=== PATIENT | female | born 1965 | race Caucasian/White ===

== ENCOUNTER 2017-02-05 10:54 | Emergency (ER) | payer OTHER ==
[~2017-02-05] VITALS: Ht 175.3 cm; Wt 86.0 kg
[2017-02-05 11:17] VITALS: Ht 175.3 cm; Wt 86.0 kg
[2017-02-05] MEDS ORDERED: ASPIRIN 325 MG TAB PO STA (11:21)
[2017-02-05 11:39] LABS: ADD SCAN DIFF NO
[2017-02-05 11:47] LABS: BASOPHILS % 0.5 % (0.0-2.0); EOSINOPHILS % 0.2 % (0.0-7.0); HEMATOCRIT 34.9 % (37.0-47.0); LYMPHOCYTES # 1.7 10^3/ul (0.8-2.9); LYMPHOCYTES % 19.8 % (15.0-51.0); MEAN CORPUSCULAR HEMOGLOBIN 29.5 pg (29.0-33.0); MEAN CORPUSCULAR HGB CONC 34.4 g/dl (32.0-37.0); MEAN CORPUSCULAR VOLUME 85.7 fl (82.0-101.0); MEAN PLATELET VOLUME 11.5 fl (7.4-10.4); MONOCYTE # 0.5 10^3/ul (0.3-0.9); NEUTROPHIL # 6.3 10^3/ul (1.6-7.5); NEUTROPHILS % 73.1 % (39.0-77.0); PLATELET COUNT 178 10^3/UL (140-415); RED BLOOD COUNT 4.07 10^6/ul (4.20-5.40); WHITE BLOOD COUNT 8.6 10^3/ul (4.8-10.8)
[2017-02-05 12:03] LABS: ANION GAP 15 (8-16); BLOOD UREA NITROGEN 11 mg/dl (7-20); CALCIUM 9.7 mg/dl (8.4-10.2); CARBON DIOXIDE 25 mmol/L (21-31); CHLORIDE 102 mmol/L (97-110); CREATININE 0.65 mg/dl (0.44-1.00); GLUCOSE 169 mg/dl (70-220); POTASSIUM 3.6 mmol/L (3.5-5.1); SODIUM 138 mmol/L (135-144)
[2017-02-05 12:04] LABS: INR 0.98
[2017-02-05 12:05] LABS: PARTIAL THROMBOPLASTIN TIME 27.8 Sec (25.0-35.0)
--- NOTE | 2017-02-05 12:06 | ERD ---
ER Documentation Chief Complaint Date/Time DATE: 02/05/17 TIME: 12:02 Chief Complaint anxiety and panic attack since yesterday HPI This 51-year-old female presents for chest pain shortness of breath that began yesterday after her was in court. Chest pain is substernal and nonradiating. She also has shortness of breath and dyspnea accompanied by it. She suffers from diabetes and hypertension has been taking her medications normally. She has had intermittent nausea as well but none currently. ROS All systems reviewed and are negative except as per history of present illness. PMhx/Soc Medical and Surgical Hx: pt denies Surgical Hx History of Surgery: No Anesthesia Reaction: No Hx Neurological Disorder: No Hx Respiratory Disorders: No Hx Cardiac Disorders: No Hx Psychiatric Problems: No Hx Miscellaneous Medical Probl: Yes (HTN, DM) Hx Alcohol Use: No Hx Substance Use: No Hx Tobacco Use: No Smoking Status: Never smoker Physical Exam Vitals Vital Signs Date Time Temp Pulse Resp B/P Pulse Ox O2 Delivery O2 Flow Rate FiO2 02/05/17 11:21 89 20 188/96 99 Room Air 02/05/17 11:17 115 16 235/116 98 Physical Exam Const: [] Head: Atraumatic Eyes: Normal Conjunctiva ENT: Normal External Ears, Nose and Mouth. Neck: Full range of motion..~ No meningismus. Resp: Clear to auscultation bilaterally Cardio: Regular rate and rhythm, no murmurs Abd: Soft, non tender, non distended. Normal bowel sounds Skin: No petechiae or rashes Back: No midline or flank tenderness Ext: No cyanosis, or edema Neur: Awake and alert Psych: Normal Mood and Affect Result Diagram: 02/05/17 1130 Results 24 hrs Laboratory Tests Test 02/05/17 11:30 White Blood Count 8.610^3/ul Red Blood Count 4.0710^6/ul Hemoglobin 12.0g/dl Hematocrit 34.9% Mean Corpuscular Volume 85.7fl Mean Corpuscular Hemoglobin 29.5pg Mean Corpuscular Hemoglobin Concent 34.4g/dl Red Cell Distribution Width 15.0% Platelet Count 73995^3/UL Mean Platelet Volume 11.5fl Neutrophils % 73.1% Lymphocytes % 19.8% Monocytes % 6.0% Eosinophils % 0.2% Basophils % 0.5% Nucleated Red Blood Cells % 0.0/100WBC Neutrophils # 6.310^3/ul Lymphocytes # 1.710^3/ul Monocytes # 0.510^3/ul Eosinophils # 0.010^3/ul Basophils # 0.010^3/ul Nucleated Red Blood Cells # 0.010^3/ul Current Medications Medications (Trade) Dose Ordered Sig/Christopher Route PRN Reason Start Time Stop Time Status Last Admin Dose Admin Aspirin (Aspirin) 325 mg ONCE STAT PO 02/05/17 11:21 02/05/17 11:24 DC 02/05/17 11:58 Procedures/MDM EKG interpretation: Normal sinus rhythm rate of 88, right axis deviation, incomplete right bundle branch block, no ST or T-wave changes concerning for acute ischemia, QTC of 474. EDINSON MCLAIN DO Feb 05, 2017 12:05
--- NOTE | 2017-02-05 12:08 | RADRPT ---
PROCEDURE: XR Chest. CLINICAL INDICATION: Chest pain. TECHNIQUE: Single frontal view. COMPARISON: None. FINDINGS: The lungs are clear. The heart size is normal. There is no pleural effusion. There is no pneumothorax. IMPRESSION: 1. Normal chest radiograph. RPTAT: QQ .Dylon Reyes MD, Date Time Electronically viewed and signed by .Dylon Reyes MD, on 02/05/2017 12:08 .R/
[2017-02-05 12:15] LABS: B-TYPE NATRIURETIC PEPTIDE 210 PG/ML (0-125)
[2017-02-05 12:19] LABS: TROPONIN-I < 0.012 ng/ml (0.00-0.12)
[2017-02-05] MEDS ORDERED: SIMV20TA PO (12:19)
[2017-02-05] MEDS ORDERED: METF500T4 PO (12:21)
[2017-02-05] MEDS ORDERED: BENA20TA48 PO (12:21)
[2017-02-05] MEDS ORDERED: ERGO500037 PO (12:22)
[2017-02-05] MEDS ORDERED: LABETALOL HCL 20MG INJ IV ONE (12:30)
[2017-02-05] MEDS ORDERED: ALPRAZOLAM 0.25 MG TAB PO ONE (13:00)
[2017-02-05] MEDS ORDERED: ALPR0.5T PO (13:49)
[2017-02-05] MEDS ORDERED: RANI150T9 PO (13:49)
[2017-02-05] MEDS ORDERED: AMLO-145 PO (13:49)
[2017-02-05 13:57] VITALS: BP 164/81; PULSE 81; RESP 16
== END 2017-02-05 13:58 | disposition home or self-care (01) ==
LOC: E/R 10:54
DX: F41.1 Generalized anxiety disorder (principal); R07.9 Chest pain, unspecified; I10 Essential (primary) hypertension; E11.9 Type 2 diabetes mellitus without complications; R06.02 Shortness of breath
CPT/HCPCS: 36415; 71010; 80048; 83880; 84484; 85025; 85610; 85730; 93005; 96374; Z7502; Z7610